=== PATIENT | female | born 1960 | race Caucasian/White ===

== ENCOUNTER → 2017-02-06 | Outpatient (CLI) | payer OTHER ==
--- NOTE | 2017-02-28 12:48 | MM ---
Reason for exam: additional evaluation requested from abnormal screening. Last mammogram was performed 1 year and 3 months ago. History: Patient is postmenopausal. Benign excisional biopsy of the left breast, 2012. Physical Findings: Nurse did not find any significant physical abnormalities on exam. MG Diagnostic Mammo w CAD JOSE Bilateral CC and MLO view(s) were taken. Prior study comparison: October 24, 2015, mammogram, performed at [facility]. August 10, 2014, mammogram, performed at [facility]. There are scattered fibroglandular densities. Finding: There are typically benign fine, diffuse/scattered calcifications in the left breast. No significant changes in finding since October 24, 2015 and August 10, 2014. These results were verbally communicated with the patient on 02/28/17. ASSESSMENT: Benign, BI-RAD 2 RECOMMENDATION: Routine screening mammogram of both breasts in 1 year.
--- NOTE | 2017-02-28 12:50 | USB ---
Reason for exam: additional evaluation requested from prior study. History: Patient is postmenopausal. Benign excisional biopsy of the left breast, 2012. US Breast BILAT Right breast ultrasound includes all four quadrants, the retroareolar region and axilla. Finding demonstrates no cystic or solid lesion seen. Left breast ultrasound includes all four quadrants, the retroareolar region and axilla. Finding demonstrates a 1.4 x 0.6 x 0.9cm mixed lesion at 2 o'clock. These results were verbally communicated with the patient on 02/28/17. ASSESSMENT: Suspicious, BI-RAD 4 RECOMMENDATION: Surgical consultation and ultrasound core biopsy of the left breast. Called Dr. Summers with mammographic findings and has scheduled an appointment for the patient for 03/06/17 at 1:[address] Wolfe. PRELIMINARY REPORT CALLED AND FAXED TO DR. WOLFE ON 02/28/17 /TP.
== END | disposition home or self-care (01) ==
LOC: RADMAMWWP 07:37
PROVIDERS: ATTEND Family Medicine
DX: R92.8 Other abnormal and inconclusive findings on diagnostic imaging of breast (principal)
CPT/HCPCS: 76641; G0204

== ENCOUNTER → 2017-03-18 | Day surgery (SDC) | payer OTHER ==
[2017-03-18 11:59] VITALS: BP 113/72; PULSE 67; RESP 16; TEMP 97; BMI 40.3
--- NOTE | 2017-03-18 12:52 | USB ---
EXAMINATION TYPE: US discontinued breast core LT DATE OF EXAM: 03/18/2017 CLINICAL HISTORY: R92.8, ABN MAMM. TECHNIQUE: Ultrasound guided core biopsy of left breast. COMPARISON: Previous ultrasound dated 02/06/2017. FINDINGS: The procedure of ultrasound guided core biopsy was explained to the patient. Benefits, alt ernatives, and risks were discussed. An informed consent was then obtained. The lesion in question could not reproduce. 2 different technologist as well as myself enhancement ob served the scanning. For this reason the procedure was canceled. IMPRESSION: DISCONTINUED ULTRASOUND-GUIDED BIOPSY OF THE LEFT BREAST. RECOMMENDATION: SIX-MONTH FOLLOW-UP ULTRASOUND OF THE LEFT BREAST. BI-RADS 2
== END ==
LOC: RADUSWWP 11:09
PROVIDERS: ATTEND Surgery
DX: R92.8 Other abnormal and inconclusive findings on diagnostic imaging of breast (principal); Z53.8 Procedure and treatment not carried out for other reasons

== ENCOUNTER → 2017-09-25 | Outpatient (CLI) | payer OTHER ==
--- NOTE | 2017-09-25 12:03 | USB ---
Reason for exam: follow-up at short interval from prior study. History: Patient is postmenopausal. US discontinued breast core LT of the left breast, March 18, 2017. Benign excisional biopsy of the left breast, 2012. Physical Findings: Nurse did not find any significant physical abnormalities on exam. US Breast Limited BILAT Right breast ultrasound demonstrates no cystic or solid lesion seen. Left breast ultrasound includes all four quadrants, the retroareolar region and axilla. Finding demonstrates a 2.8 x 0.9 x 2.5cm lymph node at 2 o'clock. No ultrasound abnormality at 2 o'clock left previous abnormality. No ultrasound abnormality at palpable on right breast. These results were verbally communicated with the patient and result sheet given to the patient on 09/25/17. ASSESSMENT: Benign, BI-RAD 2 RECOMMENDATION: Routine screening mammogram of both breasts in 5 months. Back on schedule for January 2018.
== END | disposition home or self-care (01) ==
LOC: RADUSWWP 08:53
PROVIDERS: ATTEND Family Medicine
DX: R92.0 Mammographic microcalcification found on diagnostic imaging of breast (principal)

== ENCOUNTER → 2018-02-25 | Outpatient (CLI) | payer OTHER ==
--- NOTE | 2018-02-26 14:08 | MM ---
Reason for exam: screening (asymptomatic). Last mammogram was performed 1 year and 1 month ago. History: Patient is postmenopausal. US discontinued breast core LT of the left breast, March 18, 2017. Benign excisional biopsy of the left breast, 2012. Physical Findings: A clinical breast exam by your physician is recommended on an annual basis and results should be correlated with mammographic findings. MG 3D Screening Mammo W/Cad Bilateral CC and MLO view(s) were taken. Prior study comparison: February 06, 2017, bilateral MG diagnostic mammo w CAD JOSE. October 24, 2015, mammogram, performed at [facility]. There are scattered fibroglandular densities. There is chronic nodularity in the left breast. No significant changes when compared with prior studies. ASSESSMENT: Negative, BI-RAD 1 RECOMMENDATION: Routine screening mammogram of both breasts in 1 year.
== END | disposition home or self-care (01) ==
LOC: RADMAMWWP 11:19
PROVIDERS: ATTEND Family Medicine
DX: Z12.31 Encounter for screening mammogram for malignant neoplasm of breast (principal)
CPT/HCPCS: 77063; 77067

== ENCOUNTER 2018-04-08 15:51 | Emergency (ER) | payer OTHER ==
[2018-04-08 16:01] VITALS: BP 138/72; PULSE 78; RESP 18; TEMP 98.5
--- NOTE | 2018-04-08 16:34 | XR ---
EXAMINATION TYPE: XR foot complete LT DATE OF EXAM: 04/08/2018 CLINICAL HISTORY: Left foot pain worse in the fifth digit since stubbing injury TECHNIQUE: Frontal, lateral, and oblique images of the left foot are obtained. COMPARISON: Bilateral foot x-ray May 23, 2015. FINDINGS: Osseous structures remain demineralized. There is no acute fracture/dislocation evident in the left foot. Surgical change and bunion correction surgery mid to distal first metatarsal is redem onstrated. There is stable alignment with slight persistent hallux valgus positioning first metatarso phalangeal joint. There is varus positioning distal fourth and fifth toes. There is marked flexion o f distal second through fifth toes. The overlying soft tissue appears unremarkable. There is tiny inf erior calcaneal spur redemonstrated. IMPRESSION: There is no acute fracture or dislocation in the left foot. No significant change from p rior.
--- NOTE | 2018-04-08 17:10 | ED ---
Lower Extremity Injury HPI - General Chief Complaint: Extremity Injury, Lower Stated Complaint: left pinky toe injury Time Seen by Provider: 04/08/18 16:01 Source: patient Mode of arrival: ambulatory Limitations: no limitations - History of Present Illness Initial Comments: This a 58-year-old female with past clinical history of diabetes and hypertension who presents today for chief complaint of I stubbed my left toe little toe. Patient states that Friday night she had her left baby toe on the corner of the bed post. She noticed immediate pain, however her back to bed. In the morning she continued to notice pain associated with ambulation in the left pinky toe. She attempted to ice and elevate it over the weekend, taking Tylenol for pain. When the Pain continued throughout the week, patient decided to present to the emergency department today to make sure there wasn't a fracture. Patient denies any ecchymosis, soft tissue swelling, pain in any other digits or the foot, numbness, tingling, paresthesias, muscle weakness or loss of sensation. Patient denies any recent fever, chills, shortness of breath , chest pain, back pain, abdominal pain, nausea or vomiting, numbness or tingling, dysuria or hematuria, constipation or diarrhea, headaches or visual changes, or any other complaints. - Related Data Home Medications Medication Instructions Recorded Confirmed Calcium Carbonate/Vitamin D3 800 mg PO DAILY 03/13/17 03/13/17 [Calcium 500-Vit D3 200 Tablet] Gabapentin [Neurontin] 100 mg PO BID 03/13/17 03/13/17 Glucosam/Lincoln-Msm1/C/Igor/Bosw 3,000 mg PO DAILY 03/13/17 03/13/17 [Glucosamine-Chondroitin Tablet] Multivitamins, Thera [Multivitamin 1 each PO DAILY 03/13/17 03/13/17 (formulary)] Omeprazole 20 mg PO BID 03/13/17 03/13/17 Oxybutynin Chloride [Ditropan] 10 mg PO BID 03/13/17 03/13/17 Vitamin E (Dl,Tocopheryl Acet) 800 unit PO DAILY 03/13/17 03/13/17 [Vitamin E] amLODIPine [Norvasc] 5 mg PO DAILY 03/13/17 03/18/17 traMADol HCL [Ultram] 50 mg PO DAILY PRN 03/13/17 03/13/17 methylPREDNISolone Dose Pack 4 mg PO DIRECTED 03/18/17 03/18/17 [Medrol Dose Pack] Previous Rx's Medication Instructions Recorded Acetaminophen Tab [Tylenol Tab] 500 mg PO Q6H PRN 5 Days #20 tablet 04/08/18 Allergies Allergy/AdvReac Type Severity Reaction Status Date / Time No Known Allergies Allergy Verified 04/08/18 15:57 Review of Systems ROS Statement: Those systems with pertinent positive or pertinent negative responses have been documented in the HPI. ROS Other: All systems not noted in ROS Statement are negative. Constitutional: Denies: fever, chills Eyes: Denies: eye pain ENT: Denies: ear pain, throat pain Respiratory: Denies: cough, dyspnea Cardiovascular: Denies: chest pain, palpitations Gastrointestinal: Denies: abdominal pain, nausea, vomiting, diarrhea, constipation Genitourinary: Denies: urgency, dysuria Musculoskeletal: Reports: arthralgia. Denies: joint swelling Neurological: Denies: headache, numbness, paresthesias, confusion, abnormal gait Past Medical History Past Medical History: Diabetes Mellitus, Hypertension Additional Past Medical History / Comment(s): obesity, sciatia neuropathy, chronic back pain, achiiles, sleep apnea History of Any Multi-Drug Resistant Organisms: None Reported Past Surgical History: Section, Hernia Repair Additional Past Surgical History / Comment(s): roatator cuff repair, Right. section x 2, Left bunionectomy Past Anesthesia/Blood Transfusion Reactions: Postoperative Nausea & Vomiting ( PONV) Past Psychological History: No Psychological Hx Reported Smoking Status: Never smoker Past Alcohol Use History: None Reported Past Drug Use History: None Reported - Past Family History Father Family Medical History: Coronary Artery Disease (CAD), Dementia Mother Family Medical History: Cancer Additional Family Medical History / Comment(s): melanoma Brother(s) Family Medical History: Cancer Additional Family Medical History / Comment(s): non hogkins lymphoma General Exam - General Exam Comments Initial Comments: General: The patient is awake and alert, in no distress, and does not appear acutely ill. Eye: Pupils are equal, round and reactive to light, extra-ocular movements are intact. No nystagmus. There is normal conjunctiva bilaterally. No signs of icterus. Ears, nose, mouth and throat: There are moist mucous membranes and no oral lesions. Neck: The neck is supple, there is no tenderness or JVD. Cardiovascular: There is a regular rate and rhythm. No murmur, rub or gallop is appreciated. Respiratory: Lungs are clear to auscultation, respirations are non-labored, breath sounds are equal. No wheezes, stridor, rales, or rhonchi. Musculoskeletal: Examination of the feet bilaterally, there is no evidence of soft tissue swelling or ecchymosis. No abrasions or lacerations. Patient is able to fully range all 5 digits of feet bilaterally, with final 5 strength. Sensation intact of the feet and all 5 digits of the feet bilaterally. DP pulses equal bilaterally 2+. Capillary refill less than 2 seconds. Neurological: A&O x 3. CN II-XII intact, There are no obvious motor or sensory deficits. Coordination appears grossly intact. Speech is normal. Skin: Skin is warm and dry and no rashes or lesions are noted. Psychiatric: Cooperative, appropriate mood & affect, normal judgment. Limitations: no limitations Course Vital Signs 04/08/18 15:57 Temperature 98.5 F Pulse Rate 78 Respiratory 18 Rate Blood Pressure 138/72 O2 Sat by Pulse 97 Oximetry Medical Decision Making - Medical Decision Making X-ray of left foot obtained, negative for fracture. Patient instructed to continue to use [id number] pain medications for pain if needed. Patient is instructed to follow-up with primary care provider if pain persists for greater than 1 week. Patient was told that she can continue to ice and elevate toe. Case is discussed in detail with Dr. Pacheco who agrees with the impression and plan. At this time feel there is possible toe sprain. Patient was discharged in stable condition. Disposition Clinical Impression: Toe pain, left Disposition: HOME SELF-CARE Condition: Good Additional Instructions: Please use medication as discussed. Please follow-up with family doctor in the next 2 days of symptoms have not improved. Please return to emergency room if the symptoms increase or worsen or for any other concerns. Prescriptions: Acetaminophen Tab [Tylenol Tab] 500 mg PO Q6H PRN 5 Days #20 tablet PRN Reason: Pain Is patient prescribed a controlled substance at d/c from ED?: No Referrals: Beka Summers DO [Primary Care Provider] - 1-2 days Time of Disposition: 17:06
== END 2018-04-08 17:17 | disposition home or self-care (01) ==
LOC: EC 15:51
DX: M79.675 Pain in left toe(s) (principal); I10 Essential (primary) hypertension; E66.9 Obesity, unspecified; Z68.41 Body mass index [BMI] 40.0-44.9, adult; G62.9 Polyneuropathy, unspecified; Z79.899 Other long term (current) drug therapy
CPT/HCPCS: 99283

== ENCOUNTER → 2019-03-29 | Outpatient (CLI) | payer OTHER ==
--- NOTE | 2019-03-31 07:37 | MM ---
Reason for exam: screening (asymptomatic). Last mammogram was performed 1 year and 1 month ago. History: Patient is postmenopausal. US discontinued breast core LT of the left breast, March 18, 2017. Benign excisional biopsy of the left breast, 2012. MG Screening Mammo w CAD Bilateral CC and MLO view(s) were taken. Prior study comparison: February 25, 2018, bilateral MG 3d screening mammo w/cad. February 06, 2017, bilateral MG diagnostic mammo w CAD JSOE. The breast tissue is heterogeneously dense. This may lower the sensitivity of mammography. No suspicious abnormality. No significant new finding when compared with prior studies. ASSESSMENT: Negative, BI-RAD 1 RECOMMENDATION: Routine screening mammogram of both breasts in 1 year.
== END | disposition home or self-care (01) ==
LOC: RADMAMWWP 08:47
DX: Z12.31 Encounter for screening mammogram for malignant neoplasm of breast (principal)
CPT/HCPCS: 77067

== ENCOUNTER → 2020-07-31 | Outpatient (CLI) | payer OTHER ==
--- NOTE | 2020-08-01 10:05 | MM ---
Reason for exam: additional evaluation requested from prior study. Last mammogram was performed 1 year and 4 months ago. History: Patient is postmenopausal. US discontinued breast core LT of the left breast, March 18, 2017. Benign excisional biopsy of the left breast, 2012. Physical Findings: Nurse did not find any significant physical abnormalities on exam. MG 3D Diag Mammo W/Cad JOSE Bilateral CC and MLO view(s) were taken. Prior study comparison: March 29, 2019, bilateral MG screening mammo w CAD. February 25, 2018, bilateral MG 3d screening mammo w/cad. There are scattered fibroglandular densities. No significant new findings when compared with previous films. These results were verbally communicated with the patient and result sheet given to the patient on 07/31/20. ASSESSMENT: Negative, BI-RAD 1 RECOMMENDATION: Routine screening mammogram of both breasts in 1 year. Manage on a clinical basis with regard to left axillary pain.
== END | disposition home or self-care (01) ==
LOC: RADMAMWWP 14:17
DX: N64.4 Mastodynia (principal)
CPT/HCPCS: 77062; 77066

== ENCOUNTER → 2021-07-04 | Outpatient (CLI) | payer OTHER ==
[2021-07-05 16:50] LABS: Folate, Serum 18.2 ng/mL (4.40-31.00)
== END | disposition home or self-care (01) ==
LOC: EDSTATUS 08:54 → LABYALE 16:45 → LABPRL 16:45
PROVIDERS: ATTEND Nurse Practitioner Acute Care
DX: Z12.31 Encounter for screening mammogram for malignant neoplasm of breast (principal); N64.4 Mastodynia
CPT/HCPCS: 82607; 82746

== ENCOUNTER → 2022-01-29 | Outpatient (CLI) | payer OTHER ==
--- NOTE | 2022-01-30 08:05 | MM ---
Reason for Exam: Screening (asymptomatic). Last mammogram was performed 1 year(s) and 6 month(s) ago. Patient History: Menarche at age 11. First Full-Term at age 24. Postmenopausal. Patient has history of breast feeding. 2012, Benign Excisional Biopsy on the left side. 03/18/2017, US discontinued breast core LT on the left side. Risk Values: Ginny 5 year model risk: 2.1%. NCI Lifetime model risk: 8.7%. Film Views: Bilateral CC views were taken. Bilateral MLO views were taken. Prior Study Comparison: 02/25/2018 Bilateral Screening Mammogram, [facility]. 03/29/2019 Bilateral Screening Mammogram, [facility]. 07/31/2020 Bilateral Diagnostic Mammogram, [facility]. Tissue Density: There are scattered fibroglandular densities. Findings: Analyzed By CAD. There is no suspicious group of microcalcifications or new suspicious mass in either breast. 9 calcifications noted. No architectural distortion. Overall Assessment: Benign, BI-RAD 2 Management: Screening Mammogram of both breasts in 1 year. A clinical breast exam by your physician is recommended on an annual basis and results should be correlated with mammographic findings. Electronically signed and approved by: Aquilino Soler M.D. Radiologis
== END | disposition home or self-care (01) ==
LOC: RADMAMWWP 07:51
DX: Z12.31 Encounter for screening mammogram for malignant neoplasm of breast (principal); Z78.0 Asymptomatic menopausal state
CPT/HCPCS: 77063; 77067

== ENCOUNTER → 2023-01-29 | Outpatient (CLI) | payer OTHER ==
--- NOTE | 2023-01-30 10:03 | MM ---
Reason for Exam: Screening (asymptomatic). Last screening mammogram was performed 12 month(s) ago. Patient History: Menarche at age 11. First Full-Term at age 24. Postmenopausal. Patient has history of breast feeding. 2012, Benign Excisional Biopsy on the left side. 03/18/2017, US discontinued breast core LT on the left side. Risk Values: Ginny 5 year model risk: 2.1%. NCI Lifetime model risk: 8.4%. Prior Study Comparison: 03/29/2019 Bilateral Screening Mammogram, [facility]. 07/31/2020 Bilateral Diagnostic Mammogram, [facility]. 01/29/2022 Bilateral MG 3D screening mammo w/cad, [facility]. Tissue Density: There are scattered fibroglandular densities. Findings: Analyzed By CAD. Superior MLO asymmetric density on the right is unchanged. There is no suspicious group of microcalcifications or new suspicious mass in either breast. Overall Assessment: Benign, BI-RAD 2 Management: Screening Mammogram of both breasts in 1 year. . Patient should continue monthly self-breast exams. A clinical breast exam by your physician is recommended on an annual basis. This exam should not preclude additional follow-up of suspicious palpable abnormalities. Note on Ginny scores and lifetime risk: 1. A Ginny score greater than 3% is considered moderate risk. If this is the case, consider specialist referral to assess eligibility for a risk reducing agent. 2. If overall lifetime risk for the development of breast cancer is 20% or higher, the patient may qualify for future screening with alternating mammogram and breast MRI. Electronically signed and approved by: Christina Kirk M.D. Radiologist
== END | disposition home or self-care (01) ==
LOC: RADMAMWWP 09:11
DX: Z12.31 Encounter for screening mammogram for malignant neoplasm of breast (principal); Z78.0 Asymptomatic menopausal state
CPT/HCPCS: 77063; 77067

== ENCOUNTER → 2023-10-30 | Outpatient (CLI) | payer MEDICARE, OTHER ==
[2023-10-30 18:17] LABS: Basophils # (A) 0.04 X 10*3/uL (0.00-0.10); Basophils % (A) 0.3 %; Eosinophils # (A) 0.05 X 10*3/uL (0.04-0.35); Eosinophils % (A) 0.4 %; HCT 40.3 % (37.2-46.3); HGB 12.8 g/dL (12.0-15.0); Lymphocytes # (A) 1.86 X 10*3/uL (0.90-5.00); Lymphocytes % (A) 15.2 %; MCH 27.9 pg (27.0-32.0); MCHC 31.8 g/dL (32.0-37.0); Monocytes # (A) 0.78 X 10*3/uL (0.20-1.00); Monocytes % (A) 6.4 %; NRBC Per 100 WBC 0 X 10*3/uL (0.00-0.01); Neutrophils # (A) 9.44 X 10*3/uL (1.80-7.70); Neutrophils % (A) 77.3 %; Platelet Count 382 X 10*3/uL (140-440); RBC 4.58 X 10*6/uL (4.10-5.20); RDW 13.2 % (11.5-14.5); WBC 12.22 X 10*3/uL (4.50-10.00)
[2023-10-30 18:29] LABS: Appearance,Urine Clear (Clear); Bilirubin,Urine Negative (Negative); Blood,Urine Negative (Negative); Color,Urine Yellow (Yellow); Ketones,Urine Trace (Negative); Nitrite,Urine Negative (Negative); Specific Gravity,Urine 1.023 (1.001-1.030); Urobilinogen,Urine 0.2 E.U./DL
[2023-10-30 18:57] LABS: BUN/Creat Ratio 19.44 Ratio (12.00-20.00); Blood Urea Nitrogen 17.5 mg/dL (9.0-27.0); Calcium 10.1 mg/dL (8.7-10.3); Carbon Dioxide 25.7 mmol/L (21.6-31.8); Chloride 102 mmol/L (96-109); Glucose 206 mg/dL (70-110); Potassium 4.3 mmol/L (3.5-5.5); Sodium 140 mmol/L (135-145)
== END | disposition home or self-care (01) ==
LOC: LABPAT 13:47
PROVIDERS: ATTEND Urology
DX: Z01.818 Encounter for other preprocedural examination (principal); N21.9 Calculus of lower urinary tract, unspecified; N30.10 Interstitial cystitis (chronic) without hematuria
CPT/HCPCS: 36415; 80048; 81003; 85025; 87086

== ENCOUNTER 2023-11-05 06:56 | Day surgery (SDC) | payer MEDICARE, OTHER ==
--- NOTE | 2023-11-04 17:00 | P.GSHP ---
History of Present Illness H&P Date: 11/04/23 63 yo female semnt to me with dysuria. SHe has a history of interstitial cystitis treated with hydrodistention years ago. SHe had a ct scan 05/2023 at [facility] that showed a bladder stone that was never dealt with. She doesnt rememberpassing a stone. SHe conmes for cysto, probable cystolithotripsy and hydro distention - Constitutional Constitutional: Denies chills, Denies fever - EENT Eyes: denies blurred vision, denies pain Ears, nose, mouth and throat: Denies headache, Denies sore throat - Cardiovascular Cardiovascular: Denies chest pain, Denies shortness of breath - Respiratory Respiratory: Denies cough, Denies 7 - Gastrointestinal Gastrointestinal: Denies abdominal pain, Denies diarrhea, Denies nausea, Denies vomiting - Genitourinary (Female) Genitourinary: Denies dysuria, Denies hematuria - Genitourinary (Male) Genitourinary: Denies dysuria, Denies hematuria - Musculoskeletal Musculoskeletal: Denies myalgias - Integumentary Integumentary: Denies pruritus, Denies rash - Neurological Neurological: Denies numbness, Denies weakness - Psychiatric Psychiatric: Denies anxiety, Denies depression - Endocrine Endocrine: Denies fatigue, Denies weight change Past Medical History Past Medical History: Hypertension Additional Past Medical History / Comment(s): obesity, sciatia neuropathy, chronic back pain, sleep apnea uses CPAP, "pre diabetes", kidney stone History of Any Multi-Drug Resistant Organisms: None Reported Past Surgical History: Section, Hernia Repair Additional Past Surgical History / Comment(s): roatator cuff repair, Right. section x 2, Left bunionectomy,ventral, umbilical hernia repair Past Anesthesia/Blood Transfusion Reactions: Postoperative Nausea & Vomiting (PONV) Smoking Status: Never smoker - Past Family History Father Family Medical History: Coronary Artery Disease (CAD), Dementia Mother Family Medical History: Cancer Additional Family Medical History / Comment(s): melanoma Brother(s) Family Medical History: Cancer Additional Family Medical History / Comment(s): non hogkins lymphoma Medications and Allergies Home Medications Medication Instructions Recorded Confirmed Type Calcium Carbonate/Vitamin D3 800 mg PO DAILY 03/13/17 10/31/23 History [Calcium 500-Vit D3 200 Tablet] Gabapentin [Neurontin] 100 mg PO HS 03/13/17 10/31/23 History Glucosam/Lincoln-Msm1/C/Igor/Bosw 3,000 mg PO BID 03/13/17 10/31/23 History [Glucosamine-Chondroitin Tablet] Multivitamins, Thera [Multivitamin 1 each PO DAILY 03/13/17 10/31/23 History (formulary)] traMADol HCL [Ultram] 50 mg PO DAILY PRN 03/13/17 10/31/23 History Acetaminophen Tab [Tylenol Tab] 500 mg PO Q6H PRN 5 Days #20 tablet 04/08/18 10/31/23 Rx Cholecalciferol (Vitamin D3) 50 mcg PO DAILY 10/31/23 10/31/23 History [Vitamin D3 (50 Mcg = 2000 Iu)] Diclofenac Sodium [Voltaren] 1 tab PO Q12HR 10/31/23 10/31/23 History Lidocaine 5% Patch [Lidoderm] 1 patch TOPICAL DAILY PRN 10/31/23 10/31/23 History Orphenadrine [Norflex] 100 mg PO Q12H PRN 10/31/23 10/31/23 History Zinc Gluconate [Zinc] 50 mg PO DAILY 10/31/23 10/31/23 History lisinopriL [Zestril] 5 mg PO QAM 10/31/23 10/31/23 History Allergies Allergy/AdvReac Type Severity Reaction Status Date / Time isosorbide [From Imdur] Allergy Unknown Verified 10/31/23 15:58 Surgical - Exam - General well developed, well nourished, no distress - Eyes normal ocular movement, no icteric - ENT no hearing loss, no congestion - Neck no masses, trachea midline - Respiratory normal respiratory effort, clear to auscultation - Abdomen Abdomen: soft, non tender, no guarding, no rigid, no rebound - Integumentary no rash, no abnormal pigmentation - Neurologic no disoriented, no combative - Psychiatric oriented to time, oriented to person, oriented to place, speech is normal, memory intact Results - Imaging CT scan - abdomen: report reviewed, image reviewed CT scan - pelvis: report reviewed, image reviewed Assessment and Plan Assessment: Impression: dysuria, interstitial cystitis, possible bladder stone Plan: cysto hydrodistention, possible cystolithotripsy.
[~2023-11-05 06:56] MED LIST: LACTATED RINGERS 1,000 ML IV SCH; LIDOCAINE 1% (10MG/ML) FOR IV START INTRADERMA PRN
[2023-11-05] MEDS ORDERED: HYDROmorphone 0.5 MG/0.5 ML SYRINGE IVP PRN (07:00)
[2023-11-05] MEDS: LACTATED RINGERS 1,000 ML IV ONE (08:00)
[2023-11-05 08:02] LABS: Glucose,Whole Blood 132 mg/dL (70-110)
[2023-11-05] MEDS: ONDANSETRON 4 MG/2 ML VIAL IVP ONE (08:05)
[2023-11-05] MEDS: DEXAMETHASONE SOD PHOSPHATE 4 MG/ML 1 ML VIAL IV ONE (08:05)
[2023-11-05] MEDS: SCOPOLAMINE 1 MG/72 HR PATCH TRANSDERM ONE (08:07)
--- NOTE | 2023-11-05 08:26 | XR ---
EXAMINATION TYPE: XR KUB DATE OF EXAM: 11/05/2023 Comparison: None Clinical History: 63-year-old female preoperative assessment for bladder stone Findings: Possible 1.3 cm bladder stone. Also coils related to previous ventral abdominal wall mesh repair. Sca ttered mild to moderate stool burden. Nonobstructive bowel gas pattern. Lungs are clear. Impression: Possible 1.3 cm bladder stone left paramedian lower pelvis. Coils from previous ventral abdominal wal l mesh repair. Mild to moderate stool burden.
[2023-11-05] MEDS ORDERED: MIDAZOLAM 2 MG/2 ML VIAL ONE (10:01)
[2023-11-05] MEDS ORDERED: PHENYLEPHRINE-0.9% NACL SYG 1,000 MCG/10 ML SYRINGE ONE (10:01)
[2023-11-05] MEDS ORDERED: ROCURONIUM 10 MG/ML (5 ML VIAL) IV ONE (10:01)
[2023-11-05] MEDS ORDERED: PROPOFOL 10 MG/ML 20 ML VIAL IV ONE (10:01)
[2023-11-05] MEDS ORDERED: GLYCOPYRROLATE 0.2 MG/ML 2 ML VIAL ONE (10:01)
[2023-11-05] MEDS ORDERED: NEOSTIGMINE 1 MG/ML 10 ML VIAL ONE (10:01)
[2023-11-05] MEDS ORDERED: fentaNYL (PF) 50 MCG/ML 2 ML AMP ONE (10:01)
[2023-11-05] MEDS ORDERED: LIDOCAINE 1% INJ 10MG/ML (20 ML MDV) ONE (10:01)
--- NOTE | 2023-11-05 10:53 | P.OP ---
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 Hydrodistention of bladder. Anesthesia: MAYAA Surgeon: Frederic Stearns Estimated Blood Loss (ml): 0 Pathology: other (Stone) Condition: stable Disposition: PACU Indications for Procedure: Patient is 63. She has a history of interstitial cystitis diagnosed years past. She came with dysuria and hematuria. Computed tomography scan in May last year identified a stone in her bladder. KUB shows a stone in her bladder this morning. She comes for cystoscopy with cystolithotripsy and hydrodistention. Description of Procedure: Patient brought to the operating suite. Given a general anesthetic. Placed lithotomy position with a sterile prep and drape. On introduction of the 21- [place] cystoscope with Foroblique lens its obvious she has a left ureterocele with a stone impacted within this. The rest the bladder shea unremarkable. I observed the right ureteral orifice which also has a cystocele that distends and collapses with passage of urine. I approached the left ureterocele. With the 350 laser probe I first unroofed the left ureterocele extending incision anteriorly from the ureteral meatus laterally along the trigone. The stone is then evulsed from the ureterocele and in the bladder broken up into tiny fragments with the laser probe. I irrigate the bladder free of stones. I inspect the ureterocele there is no active bleed ing. During the laser lithotripsy hydrodistention the bladder had been performed . The bladder did not have a classic appearance however of interstitial cystitis. The bladder capacity is good Impression bilateral ureteroceles with stone and left ureterocele treated with unroofing of the ureterocele and lithotripsy to the stone. Hydrodistention of the bladder with question of interstitial cystitis Recommendations the patient will be discharged home upon recovery and found the office in 2 weeks.
[2023-11-05 11:03] VITALS: TEMP 97.6
[2023-11-05 11:04] LABS: Glucose,Whole Blood 159 mg/dL (70-110)
[2023-11-05 12:14] VITALS: BP 128/80; PULSE 82; RESP 20
== END 2023-11-05 12:31 | disposition home or self-care (01) ==
LOC: OR 06:56
PROVIDERS: ATTEND Urology
DX: N21.0 Calculus in bladder (principal); N28.89 Other specified disorders of kidney and ureter; N30.11 Interstitial cystitis (chronic) with hematuria; I10 Essential (primary) hypertension; E66.9 Obesity, unspecified; Z87.442 Personal history of urinary calculi; Z79.899 Other long term (current) drug therapy; Z88.8 Allergy status to other drugs, medicaments and biological substances
CPT/HCPCS: 52317; 82365; 74018; C1758; J2250; J1100; J2710; J2405; J0690; J2001; J3010; J2704; J2371

== ENCOUNTER → 2024-02-02 | Outpatient (CLI) | payer MEDICARE, OTHER ==
--- NOTE | 2024-02-02 18:58 | MM ---
Reason for Exam: Screening (asymptomatic). Last mammogram was performed 1 year(s) and 1 month(s) ago. Patient History: Menarche at age 11. First Full-Term at age 24. Postmenopausal. Patient has history of breast feeding. 2012, Benign Excisional Biopsy on the left side. 03/18/2017, US discontinued breast core LT on the left side. Risk Values: Ginny 5 year model risk: 2.2%. NCI Lifetime model risk: 8.2%. Prior Study Comparison: 07/31/2020 Bilateral Diagnostic Mammogram, [facility]. 01/29/2022 Bilateral MG 3D screening mammo w/cad, [facility]. 01/29/2023 Bilateral MG 3D screening mammo w/cad, [facility]. Tissue Density: There are scattered areas of fibroglandular density. Findings: Analyzed By CAD. There is no suspicious group of microcalcifications or new suspicious mass in either breast. Overall Assessment: Negative, BI-RAD 1 Management: Screening Mammogram of both breasts in 1 year. Further clinical management of patient's left breast pain. Patient should continue monthly self-breast exams. A clinical breast exam by your physician is recommended on an annual basis. This exam should not preclude additional follow-up of suspicious palpable abnormalities. Note on Ginny scores and lifetime risk: 1. A Ginny score greater than 3% is considered moderate risk. If this is the case, consider specialist referral to assess eligibility for a risk reducing agent. 2. If overall lifetime risk for the development of breast cancer is 20% or higher, the patient may qualify for future screening with alternating mammogram and breast MRI. Electronically signed and approved by: Christina Kirk M.D. Radiologist
== END | disposition home or self-care (01) ==
LOC: RADMAMWWP 07:55
PROVIDERS: ATTEND Family Medicine
DX: Z12.31 Encounter for screening mammogram for malignant neoplasm of breast (principal); Z78.0 Asymptomatic menopausal state
CPT/HCPCS: 77063; 77067

== ENCOUNTER → 2024-04-02 | Day surgery (SDC) | payer MEDICARE, OTHER ==
[2024-03-31 14:08] VITALS: BMI 33.5
[~2024-04-02] MED LIST changes: +HYDROmorphone 0.5 MG/0.5 ML SYRINGE IVP PRN; -LACTATED RINGERS 1,000 ML IV SCH; +PROPOFOL 10 MG/ML 20 ML VIAL IV ONE
[2024-04-02 08:49] VITALS: TEMP 98.5
[2024-04-02] MEDS: LACTATED RINGERS 1,000 ML IV SCH (08:55)
[2024-04-02] MEDS: IV FLUID CONTINUATION 1,000 ML IV ONE (09:14)
[2024-04-02] MEDS: ONDANSETRON 4 MG/2 ML VIAL IVP PRN (09:17)
--- NOTE | 2024-04-02 10:06 | P.PCN ---
Date of Procedure: 04/02/24 Procedure(s) Performed: BRIEF HISTORY: Patient is a 64-year-old pleasant white female scheduled for an elective colonoscopy as a part of screening for colon cancer. PROCEDURE PERFORMED: Colonoscopy biopsy. PREOPERATIVE DIAGNOSIS: Screening for colon cancer. IV sedation per Anesthesia. PROCEDURE: After informed consent was obtained, the patient, was brought into the endoscopy unit. IV sedation was administered by Anesthesia under continuous monitoring. Digital rectal examination was normal. Initially the Olympus CF-160 flexible video colonoscope was then inserted in the rectum, gradually advanced into the cecum without any difficulty. Careful examination was performed as the scope was gradually being withdrawn. Ileocecal valve and the appendiceal orifice were visualized and appeared normal. Prep was excellent. Mucosa of the cecum, ascending colon, normal. The transverse colon there was a 5 mm sessile polyp that was removed by cold biopsy. Rest of the transverse colon, descending colon, sigmoid colon, and rectum appeared normal. Scattered sigmoid diverticulosis. Retroflexion was performed in the rectum and no lesions were seen. The patient tolerated the procedure well. IMPRESSION: 5 mm transverse colon polyp status post cold biopsy Scattered sigmoid diverticulosis RECOMMENDATIONS: Findings of this examination were discussed with the patient as well as her family. She was advised to follow-up with the biopsy results. If the biopsy reveals adenoma she can have repeat colonoscopy 5 years.
[2024-04-02 10:11] VITALS: RESP 16
[2024-04-02] MEDS: LACTATED RINGERS 1,000 ML IV ONE (10:12)
[2024-04-02 10:26] VITALS: BP 110/68; PULSE 73
== END ==
LOC: ORWHC2ENDO 08:25
PROVIDERS: ATTEND Internal Medicine Gastroenterology
DX: Z12.11 Encounter for screening for malignant neoplasm of colon (principal); D12.3 Benign neoplasm of transverse colon; K57.30 Diverticulosis of large intestine without perforation or abscess without bleeding; I10 Essential (primary) hypertension; G47.33 Obstructive sleep apnea (adult) (pediatric); M19.90 Unspecified osteoarthritis, unspecified site; G62.9 Polyneuropathy, unspecified; E66.9 Obesity, unspecified; K76.0 Fatty (change of) liver, not elsewhere classified; Z79.899 Other long term (current) drug therapy; Z79.1 Long term (current) use of non-steroidal anti-inflammatories (NSAID)
CPT/HCPCS: 45380; J2405; J2704; 88305

== ENCOUNTER 2024-06-08 16:49 | Emergency (ER) | payer MEDICARE, OTHER ==
[2024-06-08 16:56] VITALS: RESP 18; TEMP 98.1
--- NOTE | 2024-06-08 17:36 | ED ---
Back Pain HPI - General Chief Complaint: Back Pain/Injury Stated Complaint: BACK PAIN Time Seen by Provider: 06/08/24 17:02 Source: patient, RN notes reviewed Limitations: no limitations - History of Present Illness Initial Comments: 64-year-old female presents emergency department chief complaint of lumbar back pain. States that on Friday she was carrying a laundry basket up the stairs when she missed stepped her footing causing her to strain her lumbar spine. States that over the past 2 days the pain has gotten worse. She endorses pain to palpation of the lumbar spine and is exacerbated with range of motion including twisting, flexion, extension, and sidebending. She denies falling at the time of this injury. She denies loss of bladder or bowel continence or saddle anesthesias. Denies previous surgical history of the lumbar spine. - Related Data Home Medications Medication Instructions Recorded Confirmed Calcium Carbonate/Vitamin D3 800 mg PO DAILY 03/13/17 03/31/24 [Calcium 500-Vit D3 200 Tablet] Gabapentin [Neurontin] 100 mg PO HS 03/13/17 04/02/24 Glucosam/Lincoln-Msm1/C/Igor/Bosw 3,000 mg PO BID 03/13/17 03/31/24 [Glucosamine-Chondroitin Tablet] Multivitamins, Thera [Multivitamin 1 each PO DAILY 03/13/17 03/31/24 (formulary)] Cholecalciferol (Vitamin D3) 50 mcg PO DAILY 10/31/23 03/31/24 [Vitamin D3 (50 Mcg = 2000 Iu)] Diclofenac Sodium [Voltaren] 1 tab PO Q12HR 10/31/23 03/31/24 Lidocaine 5% Patch [Lidoderm] 1 patch TOPICAL DAILY PRN 10/31/23 04/02/24 Orphenadrine [Norflex] 100 mg PO Q12H PRN 10/31/23 04/02/24 Zinc Gluconate [Zinc] 50 mg PO DAILY 10/31/23 03/31/24 lisinopriL [Zestril] 10 mg PO QAM 10/31/23 04/02/24 Alendronate Sodium 70 mg PO WEEKLY 03/31/24 03/31/24 Previous Rx's Medication Instructions Recorded Acetaminophen Tab [Tylenol Tab] 500 mg PO Q6H PRN 5 Days #20 tablet 04/08/18 Cyclobenzaprine [Flexeril] 10 mg PO TID PRN #15 tab 06/08/24 Allergies Allergy/AdvReac Type Severity Reaction Status Date / Time isosorbide [From Imdur] Allergy Unknown Verified 04/02/24 08:43 Review of Systems ROS Statement: Those systems with pertinent positive or pertinent negative responses have been documented in the HPI. ROS Other: All systems not noted in ROS Statement are negative. Past Medical History Past Medical History: Hypertension, Liver Disease, Osteoarthritis (OA), Sleep Apnea/CPAP/BIPAP Additional Past Medical History / Comment(s): obesity, sciatia neuropathy, chronic back pain, achiiles, sleep apnea, osteo stage 4, cpap, fatty liver, diverticulitis, bladder stone, History of Any Multi-Drug Resistant Organisms: None Reported Past Surgical History: Section, Hernia Repair Additional Past Surgical History / Comment(s): roatator cuff repair, Right. section x 2, Left bunionectomy, stem cell injection right knee Past Anesthesia/Blood Transfusion Reactions: Postoperative Nausea & Vomiting (PONV) Additional Past Anesthesia/Blood Transfusion Reaction / Comment(s): no blood transfusion need scaplomine patch Past Psychological History: No Psychological Hx Reported Smoking Status: Never smoker Past Alcohol Use History: None Reported Past Drug Use History: None Reported - Past Family History Father Family Medical History: Coronary Artery Disease (CAD), Dementia Mother Family Medical History: Cancer Additional Family Medical History / Comment(s): melanoma Brother(s) Family Medical History: Cancer Additional Family Medical History / Comment(s): non hogkins lymphoma General Exam Limitations: no limitations Eye exam: Present: normal appearance, PERRL, EOMI. Absent: scleral icterus, conjunctival injection, periorbital swelling Neck exam: Present: normal inspection. Absent: tenderness, meningismus, lymphadenopathy Respiratory exam: Present: normal lung sounds bilaterally. Absent: respiratory distress, wheezes, rales, rhonchi, stridor Cardiovascular Exam: Present: regular rate, normal rhythm, normal heart sounds. Absent: systolic murmur, diastolic murmur, rubs, gallop, clicks GI/Abdominal exam: Present: soft, normal bowel sounds. Absent: distended, tenderness, guarding, rebound, rigid Extremities exam: Present: normal inspection, full ROM, normal capillary refill. Absent: tenderness, pedal edema, joint swelling, calf tenderness Back exam: Present: normal inspection, tenderness, muscle spasm (right lumbar back). Absent: CVA tenderness (R), CVA tenderness (L) Neurological exam: Present: alert, oriented X3, CN II-XII intact Skin exam: Present: warm, dry, intact, normal color. Absent: rash Course Vital Signs 06/08/24 06/08/24 16:53 19:17 Temperature 98.1 F Pulse Rate 80 64 Respiratory 18 18 Rate Blood Pressure 145/86 143/83 O2 Sat by Pulse 98 98 Oximetry Medical Decision Making - Medical Decision Making Was pt. sent in by a medical professional or institution (, PA, [employer], urgent care, hospital, or long term...) When possible be specific @ -No Did you speak to anyone other than the patient for history (EMS, parent, family, police, friend...)? What history was obtained from this source @ -No Did you review nursing and triage notes (agree or disagree)? Why? @ -I reviewed and agree with nursing and triage notes Were old charts reviewed (outside hosp., previous admission, EMS record, old EKG, old radiological studies, urgent care reports/EKG's, long term records)? Report findings @ -No old charts were reviewed Differential Diagnosis (chest pain, altered mental status, abdominal pain women, abdominal pain men, vaginal bleeding, weakness, fever, dyspnea, syncope, headache, dizziness, GI bleed, back pain, seizure, CVA, palpatations, mental health, musculoskeletal)? @ -Differential Back Pain: Strain, zoster, cauda equina syndrome, epidural abscess, vertebral osteomyelitis, discitis, fracture, subluxation, disc herniation, DJD, spinal stenosis, dissection, AAA, pancreatitis, peptic ulcer disease, pyelonephritis, kidney stone, this is not meant to be an all-inclusive list. EKG interpreted by me (3pts min.). @ -none X-rays interpreted by me (1pt min.). @ -XR of the lumbar spine reveals multilevel degenerative disc disease with no vertebral compression collapse CT interpreted by me (1pt min.). @ -None done U/S interpreted by me (1pt. min.). @ -None done What testing was considered but not performed or refused? (CT, X-rays, U/S, labs)? Why? @ -None What meds were considered but not given or refused? Why? @ -None Did you discuss the management of the patient with other professionals (professionals i.e. , PA, [employer], lab, RT, psych nurse, social media strategist, tree trimmer, teacher, collections officer, foster care case manager)? Give summary @ -No Was smoking cessation discussed for >3mins.? @ -No Was critical care preformed (if so, how long)? @ -No Were there social determinants of health that impacted care today? How? (Homelessness, low income, unemployed, alcoholism, drug addiction, transportation, low edu. Level, literacy, decrease access to med. care, fdc, rehab)? @ -No Was there de-escalation of care discussed even if they declined (Discuss DNR or withdrawal of care, Hospice)? DNR status @ -No What co-morbidities impacted this encounter? (DM, HTN, Smoking, COPD, CAD, Cancer, CVA, ARF, Chemo, Hep., AIDS, mental health diagnosis, sleep apnea, morbid obesity)? @ -None Was patient admitted / discharged? Hospital course, mention meds given and route, prescriptions, significant lab abnormalities, going to OR and other pertinent info. @ -Discharge. 64-year-old female with lumbar back pain. Patient's pain is exacerbated with palpation of the lumbar spine with range of motion. She is not exhibiting red flag symptoms concerning for cauda equina including loss of bladder or bowel continence or saddle anesthesias. States that pain does not radiate down bilateral legs. Patient is provided with dose of Toradol in the emergency department. X-ray negative for acute process. She is provided with prescription for muscle relaxer to take only as needed recommend that she take this medication for this medication drowsiness. Patient stable for discharge at this time. Discussed with Dr. Wells Undiagnosed new problem with uncertain prognosis? @ -No Drug Therapy requiring intensive monitoring for toxicity (Heparin, Nitro, Insulin, Cardizem)? @ -No Were any procedures done? @ -No Diagnosis/symptom? @ -Lumbar back pain, muscle strain Acute, or Chronic, or Acute on Chronic? @ -Acute Uncomplicated (without systemic symptoms) or Complicated (systemic symptoms)? @ -Uncomplicated Side effects of treatment? @ -No Exacerbation, Progression, or Severe Exacerbation? @ -No Poses a threat to life or bodily function? How? (Chest pain, USA, [place], pneumonia, PE, COPD, DKA, ARF, appy, cholecystitis, CVA, Diverticulitis, Homicidal, Suicidal, threat to staff... and all critical care pts) @ -No Disposition Clinical Impression: Lumbar back sprain, Back pain Disposition: HOME SELF-CARE Condition: Good Instructions (If sedation given, give patient instructions): Muscle Strain (ED), Acute Low Back Pain (ED) Additional Instructions: Please return to the Emergency Department if symptoms worsen or any other concerns. Take starter pack of Flexeril only as needed recommend he take this medication at night as this may cause increased drowsiness. Prescriptions: Cyclobenzaprine [Flexeril] 10 mg PO TID PRN #15 tab PRN Reason: Muscle Spasm Is patient prescribed a controlled substance at d/c from ED?: No Referrals: Dimitri Cody MD [Primary Care Provider] - 1-2 days Time of Disposition: 18:46
[2024-06-08] MEDS: KETOROLAC 15 MG/ML 1 ML VIAL IM STA (18:07)
--- NOTE | 2024-06-08 18:21 | XR ---
EXAMINATION TYPE: XR lumbar spine 3V DATE OF EXAM: 06/08/2024 Comparison: 05/23/2015 Clinical History: 64-year-old female right lumbar pain, injury 2 days ago Findings: Multiple coils project over the abdomen relating to prior mesh repair. Hypertrophic facet arthropathy lower lumbar spine. There appear to be small T12 ribs. [facility] within the lower thoracic and upper lumb ar spine. Degenerative grade 1 anterolisthesis L4-L5. Trace grade 1 retrolisthesis L2-L3 and L3-L4. M ild multilevel degenerative disc disease and endplate spondylosis. Vertebral body heights are preserv ed. Impression: 1. Mild multilevel degenerative disc disease. 2. Hypertrophic facet arthropathy lower lumbar spine with degenerative grade 1 anterolisthesis L4-L5. Trace grade 1 retrolisthesis L2-L3 and L3-L4. 3. DISH within the lower thoracic and upper lumbar spine has formed since 2014. 4. No vertebral compression collapse. [facility], , 06/08/2024 6:19 PM
[2024-06-08] MEDS: CYCLOBENZAPRINE 10MG STARTER 3 TAB BTL PO STA (18:53)
[2024-06-08 19:20] VITALS: BP 143/83; PULSE 64
== END 2024-06-08 19:19 | disposition home or self-care (01) ==
LOC: EC 16:49
CPT/HCPCS: 72100; 96372; 99283

== ENCOUNTER → 2024-11-23 | Outpatient (CLI) | payer MEDICARE, OTHER ==
--- NOTE | 2024-11-23 08:19 | US ---
EXAMINATION TYPE: US abdomen limited DATE OF EXAM: 11/23/2024 COMPARISON: NONE CLINICAL INDICATION: Female, 64 years old with history of R10.11 RUQ PAIN; RUQ pain TECHNIQUE: Grayscale and color Doppler imaging of the right upper quadrant was performed. FINDINGS: EXAM MEASUREMENTS: Liver Length: 16.0 cm Gallbladder Wall: 0.21 cm CBD: 0.3 cm Right Kidney: 12.4 x 5.4 x 5.7 cm ECONOMIC SPECIALIST NOTES: Limited due to overlying bowel gas Pancreas: appears wnl Liver: wnl Gallbladder: nonmobile gallstone seen near neck Evidence for sonographic Collins's sign: No CBD: wnl Right Kidney: wnl Slightly suboptimal study. IMPRESSION: THERE IS A SINGLE NONMOBILE GALLSTONE IN THE GALLBLADDER NECK BUT NO SECONDARY ULTRASOUND EVIDENCE TO SUGGEST ACUTE CHOLECYSTITIS. [facility], , 11/23/2024 8:17 AM
--- NOTE | 2024-11-23 10:26 | BD ---
EXAMINATION TYPE: Axial Bone Density DATE OF EXAM: 11/23/2024 CLINICAL HISTORY: 64 years old Female. ICD-10 CODE: M81.0 OSTEOPOROSIS , Additional History: Height: 62.3 Weight: 202 FRAX RISK QUESTIONS: Glucocorticoids (More than 3mos): in her knees, injection (Ex: prednisone, prednisolone, methylprednisolone, dexamethasone, and hydrocortisone). 3. Menopause before 45: over , 53 5. Chronic liver disease: yes, fatty RISK FACTORS HISTORY OF: none known except umbilical hernia repair with mesh, visable on spine image MEDICATIONS: Osteoporosis Medications: fosamax for about 8-10 yrs, bp meds, anxiety meds, tums, steroid injections into knees, osteoarthritis, vit d3 EXAM MEASUREMENTS: Bone mineral densitometry was performed using the [employer] System. Bone mineral density as measured about the Lumbar spine is: ----- L1-L4(G/cm2): 1.172 T Score Values are as follows: ----- L1: 0.0 ----- L2: -0.9 ----- L3: 0.0 ----- L4: 0.4 ----- L1-L4: -0.1 Z Score Values are as follows: ----- L1: 0.7 ----- L2: -0.1 ----- L3: 0.7 ----- L4: 1.1 ----- L1-L4: 0.7 Bone mineral density is first dexa at [facility]. Bone mineral density about the R hip (g/cm2): 0.942 Bone mineral density about the L hip (g/cm2): 0.943 T Score values are as follows: -----R Neck: -1.7 -----L Neck: -1.9 -----R Total: -0.5 -----L Total: -0.5 Z Score values are as follows: -----R Neck: -0.7 -----L Neck: -1.0 -----R Total: 0.1 -----L Total: 0.1 Bone mineral density is her first bone density at [facility]. FRAX%s: The graph provided illustrates a 10.0% chance for a major osteoporotic fx and a 1.5% chance f or the hips probability for fx in 10 years time. IMPRESSION: Osteopenia (T Score between -2.5 and -1). There is slightly increased risk of fracture and the patient may be considered for treatment. Re-Screen 2-5 years. NOTE: T-SCORE=SD OF THE YOUNG ADULT MEAN. [facility], , 11/23/2024 10:24 AM
== END | disposition home or self-care (01) ==
LOC: RADUSWWP 07:05
PROVIDERS: ATTEND Family Medicine
DX: M81.0 Age-related osteoporosis without current pathological fracture (principal); M85.89 Other specified disorders of bone density and structure, multiple sites; K80.20 Calculus of gallbladder without cholecystitis without obstruction
CPT/HCPCS: 76705; 77080